=== PATIENT | male | born 1995 | race Caucasian/White ===

== ENCOUNTER 2022-12-17 15:38 | Emergency (ER) | payer MEDICAID ==
[~2022-12-17] VITALS: Ht 172.7 cm; Wt 81.0 kg
[2022-12-17 16:10] LABS: BASOPHILS % (AUTO) 0.4 % (0.0-2.0); EOSINOPHILS % (AUTO) 0.4 % (1.0-6.0); HEMOGLOBIN 17.4 g/dL (13.5-17.5); LYMPHOCYTES # (AUTO) 0.9 K/uL (1.0-4.8); LYMPHOCYTES % (AUTO) 8.6 % (22.0-44.0); MEAN CORPUSCULAR HEMOGLOBIN 29.7 pg (26.0-34.0); MEAN CORPUSCULAR HGB CONC 33.4 G/dL (31.0-37.0); MEAN CORPUSCULAR VOLUME 89 fL (80-100); MONOCYTES # (AUTO) 0.9 K/uL (0.1-1.0); MONOCYTES % (AUTO) 8.1 % (2.0-9.0); NEUTROPHILS # (AUTO) 8.8 K/uL (1.8-7.7); NEUTROPHILS % (AUTO) 82.5 % (40.0-70.0); PLATELET COUNT (AUTO) 265 K/uL (150-450); RED BLOOD CELL COUNT(AUTO) 5.85 MIL/uL (4.50-5.90); RED CELL DISTRIBUTION WIDTH 13.6 % (11.5-14.5)
[2022-12-17 16:23] LABS: ANION GAP 9 mmol/L (8-16); CALCIUM, TOTAL 9.1 mg/dL (8.8-10.5); CARBON DIOXIDE 26 mmol/L (22-29); CHLORIDE 98 mmol/L (98-107); CREATININE 1.07 mg/dL (0.60-1.30); GLOMERULAR FILTR. RATE CALC > 60 mL/min (>60); GLUCOSE,RANDOM 126 mg/dL (70-110); POTASSIUM 3.6 mmol/L (3.5-5.1); SODIUM SERUM 133 mmol/L (136-145); UREA NITROGEN, BLOOD 12 mg/dL (7-18)
[2022-12-17 16:28] LABS: ALANINE AMINOTRANSFERASE 78 U/L (12-78); ALBUMIN 4.3 g/dL (3.4-5.0); ALKALINE PHOSPHATASE 127 U/L (46-116); ASPARTATE AMINOTRANSFERASE 39 U/L (15-37); BILIRUBIN,TOTAL 1.2 mg/dL (0.1-1.0); TOTAL PROTEIN, SERUM 8.8 g/dL (6.4-8.2)
[2022-12-17] MEDS ORDERED: LORazepam 1 MG TABLET PO ONE (16:30)
[2022-12-17 19:43] VITALS: BP 159/93
[2022-12-17] MEDS ORDERED: LORazepam 2 MG TABLET PO ONE (20:00)
== END 2022-12-17 20:02 | disposition home or self-care (01) ==
LOC: EMS 15:41
DX: F41.9 Anxiety disorder, unspecified (principal); F15.10 Other stimulant abuse, uncomplicated; F17.210 Nicotine dependence, cigarettes, uncomplicated
CPT/HCPCS: 99283; 80053; 85025; 36415; G0480

== ENCOUNTER 2022-12-21 13:53 | Emergency (ER) | payer MEDICAID ==
[~2022-12-21] VITALS: Ht 172.7 cm; Wt 81.8 kg
[2022-12-21] MEDS ORDERED: IBUP-1492 PO (16:35)
[2022-12-21] MEDS ORDERED: DiphenhydrAMINE HCL 25 MG CAPSULE PO ONE (16:45)
[2022-12-21 16:51] VITALS: BP 127/76
== END 2022-12-21 16:53 | disposition home or self-care (01) ==
LOC: EMS 13:58
DX: F10.129 Alcohol abuse with intoxication, unspecified (principal); R68.84 Jaw pain; F17.210 Nicotine dependence, cigarettes, uncomplicated; F15.90 Other stimulant use, unspecified, uncomplicated; Y90.9 Presence of alcohol in blood, level not specified
CPT/HCPCS: 70486; 99284; Z7502; Z7610

== ENCOUNTER 2023-04-12 20:41 | Emergency (ER) | payer MEDICAID, OTHER ==
[~2023-04-12] VITALS: Ht 170.2 cm; Wt 105.0 kg
[~2023-04-12 20:41] MED LIST: IBUP-1492 PO
[2023-04-12 21:53] VITALS: BP 144/90
== END 2023-04-12 22:55 | disposition left against medical advice (07) ==
LOC: EMS 20:43
DX: F10.90 Alcohol use, unspecified, uncomplicated (principal); F15.90 Other stimulant use, unspecified, uncomplicated; J45.909 Unspecified asthma, uncomplicated; F17.210 Nicotine dependence, cigarettes, uncomplicated
CPT/HCPCS: 99281; Z7502

== ENCOUNTER 2023-04-13 02:13 | Emergency (ER) | payer OTHER ==
[~2023-04-13] VITALS: Ht 170.2 cm; Wt 59.1 kg
[2023-04-13 02:15] VITALS: BP 141/90
[2023-04-13] MEDS ORDERED: SODIUM CHLORIDE 0.9% 2,000 ML IV ONE (04:30)
== END 2023-04-13 04:46 | disposition left against medical advice (07) ==
LOC: EMS 02:13
DX: F10.90 Alcohol use, unspecified, uncomplicated (principal); F15.90 Other stimulant use, unspecified, uncomplicated; F22 Delusional disorders; J45.909 Unspecified asthma, uncomplicated; F17.210 Nicotine dependence, cigarettes, uncomplicated
CPT/HCPCS: 99281; Z7502

== ENCOUNTER 2023-04-13 11:42 | Emergency (ER) | payer OTHER ==
[~2023-04-13] VITALS: Ht 170.2 cm; Wt 90.9 kg
[2023-04-13 11:43] VITALS: BP 119/77
[2023-04-13 12:56] LABS: COVID AG,FIA SOURCE NASOPHARYNGEAL
== END 2023-04-13 13:40 | disposition home or self-care (01) ==
LOC: EMS 11:44
DX: F31.9 Bipolar disorder, unspecified (principal); J45.909 Unspecified asthma, uncomplicated; F17.210 Nicotine dependence, cigarettes, uncomplicated; F15.90 Other stimulant use, unspecified, uncomplicated; Z20.822 Contact with and (suspected) exposure to COVID-19
CPT/HCPCS: 99284; Z7502